=== PATIENT | female | born 1995 | race Caucasian/White ===

== ENCOUNTER 2018-09-01 11:49 | Outpatient (REF) | payer MEDICAID, SELFPAY ==
[2018-09-01 21:40] LABS: Anion Gap 10.2 mmol/L (3-11); BUN 13 mg/dL (7-18); CO2 29.8 mmol/L (21.0-32.0); CREATININE 0.79 mg/dL (0.55-1.02); Calcium 9.5 mg/dL (8.5-10.1); Calculated LDL 129; Chloride 104 mmol/L (98-107); Cholesterol 204 mg/dL (50-200); Glucose 180 mg/dL (70-100); HDL Cholesterol 70 mg/dL (40-60); Potassium 4.7 mmol/L (3.5-5.1); Sodium 144 mmol/L (136-145); Triglyceride 26 mg/dL (30-150)
[2018-09-01 21:50] LABS: COMMENT (LAB VIEW ONLY) 15.08 mg/dL
== END 2018-09-01 12:09 ==
LOC: NCHCN 11:49
PROVIDERS: PCP Family Medicine; Visit Provider Family Medicine
DX: E10.9 Type 1 diabetes mellitus without complications (principal); E78.5 Hyperlipidemia, unspecified
CPT/HCPCS: 80048; 80061; 83721; 82043; 82570

== ENCOUNTER 2018-09-11 09:47 | Outpatient (CLI) | payer OTHER, MEDICAID, SELFPAY ==
--- NOTE | 2018-09-08 11:00 | DIABASSESS_ITS ---
DESCRIPTION/ASSESSMENT: Brianne Rivas presents for diabetes self management with ~8 years experience dealing with type 1 diabetes. A1c improved from 7.7 to 6.3 at last visit. MEDICATION: Recently decreased Lantus from 45u in split dose to 28u in AM. She has taken Novolog 1 unit for 10 grams carbohydrate and 3 units corrects 100mg/dl. She reports taking about 6-12units Novolog over the course of a day. FOOD: Brianne describes eating so she does not have to take mealtime insulin. She has one meal during the day that may include meat with quinoa or rice salad and might have a meat c heese wrap before bed. Otherwise she drinks orange juice frequently to correct hypoglycemia at 16ounces a dose. MONITORIN-4 times a day. Blood sugars at lower basal dose still causes hypoglycemia. Fasting blood sugars are either high or low: 220, 41, 258, 140,57, 259, 131. Bedtime blood sugars 56, 254, 144, 70, 46, 79. At bedtime she just takes orange juice and goes to bed. 09/06 she had blood sugars 57, 55, 118, 46 without Novolog dosing indicating basal rate continues to be too high. She was 259 the next morning. INTERVENTION: Calculated her insulin:carbohydrate at 1 unit covers 15grams at current insulin dosing, and 1 unit corrects 50mg/dl. She understands her current goal is to have no hypoglycemic events. In addition, suggest decreasing basal insulin to 26units given her day of 3 hypoglycemic episodes without Novolog. Discussed insulins including Tresiba which is a longer acting insulin that offers improved basal coverage. Discussed wearing Continuous GLucose monitor for a week to see what happens overnight. It is unavailable today but will consider returning when the CGM gets back here. In the meantime discussed testing blood sugar when she wakes at 4AM at least one night. Discussed treating hypoglycemia. She takes 60grams carbohydrate to correct a low and does not recheck blood sugar. Discussed protocol and she is willing to follow this. ACTION PLAN: Suggest Novolog dosing at 1 unit covers 15grams carbohydrate and 1 unit corrects 50mg/dl. Further suggest a slight decrease in basal insulin to 26 units and watch fasting blood sugars She will treat hypoglycemia with 15/30 grams carbohydrate and recheck 15 minutes after treatment per protocol. She will return in 1-2 weeks when CGM returns if she still feels this will be helpful. She was engaged in the conversation and motivated to follow the above suggested changes to prevent hypoglycemia.
== END 2018-09-11 10:07 ==
PROVIDERS: PCP Family Medicine; Visit Provider Dietitian, Registered
DX: E11.9 Type 2 diabetes mellitus without complications (principal); Z79.4 Long term (current) use of insulin; Z71.3 Dietary counseling and surveillance
CPT/HCPCS: G0108

== ENCOUNTER 2019-02-12 12:55 | Outpatient (REF) | payer OTHER, SELFPAY ==
[2019-02-14 14:12] LABS: Chlamydia Result Negative (Negative)
[2019-02-14 16:00] LABS: GC Result Negative (Negative)
== END 2019-02-12 13:15 ==
LOC: NCHCN 12:55
PROVIDERS: PCP Family Medicine; Visit Provider Family Medicine
DX: N89.8 Other specified noninflammatory disorders of vagina (principal); Z11.3 Encounter for screening for infections with a predominantly sexual mode of transmission
CPT/HCPCS: 87491; 87591; 87480; 87510; 87660

== ENCOUNTER 2020-02-05 14:11 | Outpatient (REF) | payer OTHER, SELFPAY ==
[2020-02-09 04:38] LABS: Patient Race White; SARS-CoV-2 RNA Undetected (Undetected); SARS-CoV-2 Specimen Source Nasal
== END 2020-02-05 14:31 ==
LOC: NCHCN 14:11
PROVIDERS: PCP Family Medicine; Visit Provider Family Medicine
DX: J06.9 Acute upper respiratory infection, unspecified (principal)
CPT/HCPCS: U0003

== ENCOUNTER 2020-07-25 13:49 | Outpatient (REF) | payer OTHER, SELFPAY ==
[2020-07-25 21:07] LABS: Anion Gap 9.4 mmol/L (3-11); BUN 14 mg/dL (7-18); CO2 26.6 mmol/L (21.0-32.0); CREATININE 0.8 mg/dL (0.55-1.02); Calcium 9.2 mg/dL (8.5-10.1); Calculated LDL 117 mg/dL (<100); Chloride 105 mmol/L (98-107); Cholesterol 206 mg/dL (<200); Glucose 85 mg/dL (74-106); HDL Cholesterol 79 mg/dL (40-60); Potassium 4.5 mmol/L (3.5-5.1); Sodium 141 mmol/L (136-145); Triglyceride 51 mg/dL (<150)
== END 2020-07-25 13:50 | disposition home or self-care (01) ==
LOC: NCHCN 13:49
PROVIDERS: PCP Family Medicine; Visit Provider Family Medicine
DX: E10.9 Type 1 diabetes mellitus without complications (principal); F10.10 Alcohol abuse, uncomplicated; E78.5 Hyperlipidemia, unspecified
CPT/HCPCS: 80048; 80061

== ENCOUNTER 2021-03-27 09:39 | Outpatient (REF) | payer OTHER, SELFPAY ==
[2021-03-27 16:04] LABS: Hemoglobin A1C 6.2 % (<5.7)
[2021-03-27 16:34] LABS: ALT 24 U/L (14-59); AST 15 U/L (15-37); Albumin 4.6 g/dL (3.4-5.0); Alkaline Phosphatase 67 U/L (46-116); Anion Gap 11.6 mmol/L (3-11); BUN 16 mg/dL (7-18); Bilirubin, Total 0.4 mg/dL (0.2-1.0); CO2 23.4 mmol/L (21.0-32.0); CREATININE 0.8 mg/dL (0.55-1.02); Calcium 9.2 mg/dL (8.5-10.1); Calculated LDL 153 mg/dL (<100); Chloride 103 mmol/L (98-107); Cholesterol 260 mg/dL (<200); Glucose 59 mg/dL (74-106); HDL Cholesterol 91 mg/dL (40-60); Potassium 4.5 mmol/L (3.5-5.1); Sodium 138 mmol/L (136-145); TSH 0.94 uIU/mL (0.36-3.74); Triglyceride 80 mg/dL (<150)
== END 2021-03-27 09:40 | disposition home or self-care (01) ==
LOC: LBN 09:39
PROVIDERS: PCP Family Medicine; Visit Provider Nurse Practitioner Family
DX: E10.65 Type 1 diabetes mellitus with hyperglycemia (principal)
CPT/HCPCS: 80053; 80061; 83036; 84443

== ENCOUNTER 2021-05-22 17:07 | Outpatient (REF) | payer OTHER, SELFPAY ==
[2021-05-22 21:33] LABS: COMMENT (LAB VIEW ONLY) 9.61 mg/dL
== END 2021-05-22 17:08 | disposition home or self-care (01) ==
LOC: NCHCN 17:07
PROVIDERS: PCP Family Medicine; Visit Provider Family Medicine
DX: E10.9 Type 1 diabetes mellitus without complications (principal)
CPT/HCPCS: 82043; 82570

== ENCOUNTER 2021-10-01 15:41 | Outpatient (REF) | payer OTHER, SELFPAY ==
[2021-10-01 16:12] LABS: Hemoglobin A1C 6.8 % (<5.7)
[2021-10-01 16:34] LABS: ALT 33 U/L (14-59); AST 22 U/L (15-37); Albumin 4.3 g/dL (3.4-5.0); Alkaline Phosphatase 57 U/L (46-116); Anion Gap 7.8 mmol/L (3-11); BUN 16 mg/dL (7-18); Bilirubin, Total 0.8 mg/dL (0.2-1.0); CO2 26.2 mmol/L (21.0-32.0); CREATININE 0.8 mg/dL (0.55-1.02); Calcium 9.1 mg/dL (8.5-10.1); Calculated LDL 114 mg/dL (<100); Chloride 102 mmol/L (98-107); Cholesterol 216 mg/dL (<200); Glucose 168 mg/dL (74-106); HDL Cholesterol 89 mg/dL (40-60); Potassium 4.3 mmol/L (3.5-5.1); Sodium 136 mmol/L (136-145); TSH 1.31 uIU/mL (0.36-3.74); Total Protein 6.9 g/dL (6.4-8.2); Triglyceride 67 mg/dL (<150)
[2021-10-01 17:00] LABS: COMMENT (LAB VIEW ONLY) < 13.00 mg/dL
== END 2021-10-01 15:42 | disposition home or self-care (01) ==
LOC: LBN 15:41
PROVIDERS: PCP Family Medicine; Visit Provider Nurse Practitioner Family
DX: E10.65 Type 1 diabetes mellitus with hyperglycemia (principal)
CPT/HCPCS: 80053; 80061; 82043; 82570; 83036; 84443

== ENCOUNTER 2023-08-24 15:08 | Outpatient (REF) | payer BC, SELFPAY ==
[2023-08-24 22:12] LABS: Hemoglobin A1C 7.2 % (<5.7)
[2023-08-24 22:37] LABS: Anion Gap 8.6 mmol/L (3-11); BUN 15 mg/dL (7-18); CO2 27.4 mmol/L (21.0-32.0); CREATININE 0.7 mg/dL (0.55-1.02); Calcium 9.4 mg/dL (8.5-10.1); Calculated LDL 105 mg/dL (<100); Chloride 99 mmol/L (98-107); Cholesterol 217 mg/dL (<200); Estimated GFR 119.99 (mL/min/1.73m2); Glucose 159 mg/dL (74-106); HDL Cholesterol 100 mg/dL (40-60); Potassium 3.9 mmol/L (3.5-5.1); Sodium 135 mmol/L (136-145); TSH 1.53 uIU/Ml (0.36-3.74); Triglyceride 61 mg/dL (<150)
[2023-08-24 22:42] LABS: COMMENT (LAB VIEW ONLY) 20.63 mg/dL; Microalb ug/mg Crea 11.1 ug/mg Cr
== END 2023-08-24 15:09 | disposition home or self-care (01) ==
LOC: NCHCN 15:08
PROVIDERS: PCP Family Medicine; Visit Provider Family Medicine
DX: E10.9 Type 1 diabetes mellitus without complications (principal); Z13.29 Encounter for screening for other suspected endocrine disorder
CPT/HCPCS: 80048; 80061; 82043; 82570; 83036; 84443

== ENCOUNTER 2024-06-15 10:04 | Outpatient (REF) | payer BC, SELFPAY ==
--- NOTE | 2024-06-15 08:15 | PAPFT_PTH ---
PATIENT: Brianne Rivas LOC: [facility] U#:[id number] AGE/SX: 28/F ROOM: RE06/15/[address]: Adrienne Guan : 1995 BED: DIS: 06/15/2024 SPEC #: [id number] RECD: 06/15/24 18:30 STATUS: DILLAN EDWARD #: [id number] SANDY: 06/15/24 08:[address]: Adrienne Guan DEPT: [facility] Cytology RECD BY: Billie Middleton Tissues: 1 - CX/ENDOCX FOR PAP SMEARS Procedures: PAP THIN PREP/[facility] Screening Comments: [id number] (CHLAMYDIA/GC)
[2024-06-15 15:07] LABS: ALT 40 U/L (14-59); AST 30 U/L (15-37); Albumin 4.4 g/dL (3.4-5.0); Alkaline Phosphatase 77 U/L (46-116); Anion Gap 10.9 mmol/L (3-11); BUN 9 mg/dL (7-18); Bilirubin, Total 0.4 mg/dL (0.2-1.0); CO2 27.1 mmol/L (21.0-32.0); CREATININE 0.9 mg/dL (0.55-1.02); Chloride 104 mmol/L (98-107); Estimated GFR 88.75 (mL/min/1.73m2); Glucose 246 mg/dL (74-106); Potassium 4.4 mmol/L (3.5-5.1); Sodium 142 mmol/L (136-145); Total Protein 7.4 g/dL (6.4-8.2)
[2024-06-18 12:47] LABS: Chlamydia Result Negative (Negative); GC Result Negative (Negative)
== END 2024-06-15 10:05 | disposition home or self-care (01) ==
LOC: NCHCN 10:04
PROVIDERS: PCP Family Medicine; Visit Provider Family Medicine
DX: F10.10 Alcohol abuse, uncomplicated (principal); Z11.3 Encounter for screening for infections with a predominantly sexual mode of transmission; Z12.4 Encounter for screening for malignant neoplasm of cervix
CPT/HCPCS: 80053; 87491; 87591; 88142

== ENCOUNTER 2024-07-20 21:10 | Outpatient (REF) | payer BC, SELFPAY ==
[2024-07-23 10:25] LABS: HIV-1/2 Ag & Ab Screen Negative (Negative)
[2024-07-23 10:28] LABS: Syphilis Serology (RPR) Negative (Negative)
[2024-07-23 11:02] LABS: Hepatitis C Ab w Rflx HCV PCR Negative (Negative)
[2024-07-23 12:24] LABS: Chlamydia Result Negative (Negative); GC Result Negative (Negative)
== END 2024-07-20 21:11 | disposition home or self-care (01) ==
LOC: NCHCN 21:10
PROVIDERS: PCP Family Medicine; Visit Provider Family Medicine
DX: Z20.2 Contact with and (suspected) exposure to infections with a predominantly sexual mode of transmission (principal)
CPT/HCPCS: 86803; 87389; 87491; 87591; 86592